=== PATIENT | male | born 2000 | race Caucasian/White ===

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

== ENCOUNTER 2019-03-30 20:22 | Emergency (ER) | payer MEDICAID, MEDICARE ==
[~2019-03-30] VITALS: Ht 175.3 cm; Wt 77.6 kg
[2019-03-30 23:54] VITALS: BP 113/48
== END 2019-03-30 23:58 | disposition home or self-care (01) ==
LOC: ER 20:22
DX: L02.212 Cutaneous abscess of back [any part, except buttock and flank] (principal); L03.312 Cellulitis of back [any part except buttock and flank]
CPT/HCPCS: 99283